=== PATIENT | male | born 1955 | race Hispanic/Latino ===

== ENCOUNTER 2017-12-29 10:20 | Emergency (ER) | payer OTHER ==
[2017-12-29 11:29] LABS: Absolute Monocytes 0.4 K/uL (0.1-1.3); Absolute Neutrophil 3.6 K/uL (1.8-8.0); Basophils % 0.5 % (0-1.3); Eosinophils % 2.1 % (0-4.4); Hematocrit 45.9 % (39.6-49.0); Lymphocytes % 32.7 % (15.3-44.8); MCH 31.2 pg (27.0-35.0); MCV 88.4 fL (80-100); MPV 8.1 fL (7.6-11.3); Monocytes % 6.9 % (3.3-12.3)
[2017-12-29 11:36] LABS: Protime INR 0.98
[2017-12-29 11:49] LABS: Albumin 3.9 g/dL (3.4-5.0); Bilirubin Direct 0.1 mg/dL (0-0.2); Bilirubin Total 0.4 mg/dL (0.2-1.0); Magnesium 2.4 mg/dL (1.8-2.4); Potassium 4.5 mmol/L (3.5-5.1); Protein, Total 7.4 g/dL (6.4-8.2)
[2017-12-29] MEDS ORDERED: MECLIZINE HCL 12.5 MG TAB ONE (11:57)
[2017-12-29] MEDS ORDERED: KETOROLAC 30 MG/ML INJ ONE (11:57)
--- NOTE | 2017-12-29 12:03 | RAD REPORT ---
EXAM DESCRIPTION: CT - Head Brain Wo Cont - 12/29/2017 11:41 am CLINICAL HISTORY: Headache, fatigue, dizziness, syncope COMPARISON: None. TECHNIQUE: Axial 5 mm thick images of the head were obtained without IV contrast. All CT scans are performed using dose optimization technique as appropriate and may include automated exposure control or mA/KV adjustment according to patient size. FINDINGS: No intracranial hemorrhage, mass, edema or shift of mid-line structures. No acute infarcti on changes seen. No abnormal extra-axial fluid collections. Ventricles are normal. Physiologic calcif ications are present. Mastoid air cells and visualized portions of the paranasal sinuses are clear. No acute bony findings. IMPRESSION: Negative non-contrast CT head examination.
--- NOTE | 2017-12-29 12:49 | RAD REPORT ---
EXAM DESCRIPTION: RAD - Chest Single View - 12/29/2017 11:48 am CLINICAL HISTORY: Dizziness, weakness, shortness of breath COMPARISON: None. TECHNIQUE: AP portable chest image was obtained 1137 hours . FINDINGS: Lungs are clear. Heart and vasculature are normal. No measurable pleural effusion and no p neumothorax. No gross bony abnormality seen. No acute aortic findings suspected. IMPRESSION: No acute cardiopulmonary process.
--- NOTE | 2017-12-29 14:29 | RAD REPORT ---
EXAM DESCRIPTION: CT - Head angio - 12/29/2017 2:01 pm CLINICAL HISTORY: Dizziness, occipital headache COMPARISON: CT head December 29 TECHNIQUE: During dynamic enhancement using nonionic IV contrast, axial 1 millimeter thick images we re obtained. Sagittal and coronal reformatted images were generated and reviewed using maximum intens ity projection algorithm. FINDINGS: No aneurysm or vascular malformation. No vasculitis findings. Anterior communicating arter y is present. The patient has a normal variant persistent origin supply to the right posterior cerebral artery. Venous sinuses are patent. IMPRESSION: Negative CTA head.
--- NOTE | 2017-12-29 14:45 | EDPHYS ---
Physician Documentation [facility] Name: Kris Teague Age: 62 yrs Sex: Male : 1955 Arrival Date: 12/29/2017 Time: 10:23 Bed 6 Private MD: Out, [facility] ED Physician Soto Duarte HPI: 12/29 11:31 This 62 yrs old Male presents to ER via Ambulatory with complaints of jr8 Dizziness, Headache, Fatigue. 11:31 The patient presents with sense of spinning, vertigo. Onset: The symptoms/episode jr8 began/occurred gradually, 2 week(s) ago. Context: occurred at home, occurred while the patient was at rest, just prior to the episode the patient experienced no apparent symptoms. Modifying factors: The symptoms are alleviated by nothing, the symptoms are aggravated by standing up, changing position. Associated signs and symptoms: Pertinent positives: headache. Severity of symptoms: At their worst the symptoms were moderate in the emergency department the symptoms are unchanged. Patient's baseline: Neuro: alert and fully oriented, Motor: no deficits, Ambulation: walks without assistance, Speech: normal. The patient has not experienced similar symptoms in the past. The patient has not recently seen a physician. Historical: - Allergies: 10:37 No Known Allergies; sv - Home Meds: 10:37 None [Active]; sv - PMHx: 10:37 None; sv - PSHx: 10:37 None; sv - Immunization history:: Adult Immunizations up to date. - Social history:: Smoking status: Patient/guardian denies using tobacco. - Ebola Screening: : No symptoms or risks identified at this time. ROS: 11:31 Eyes: Negative for injury, pain, redness, and discharge, ENT: Negative for injury, jr8 pain, and discharge, Neck: Negative for injury, pain, and swelling, Cardiovascular: Negative for chest pain, palpitations, and edema, Respiratory: Negative for shortness of breath, cough, wheezing, and pleuritic chest pain, Abdomen/GI: Negative for abdominal pain, nausea, vomiting, diarrhea, and constipation, Back: Negative for injury and pain, MS/Extremity: Negative for injury and deformity, Skin: Negative for injury, rash, and discoloration. 11:31 Neuro: Positive for dizziness, headache, Negative for altered mental status, gait disturbance, hearing loss, loss of consciousness, numbness, seizure activity, speech changes, syncope, near syncope, tingling, tinnitus, tremor, visual changes, weakness. Exam: 11:31 Eyes: Pupils equal round and reactive to light, extra-ocular motions intact. Lids and jr8 lashes normal. Conjunctiva and sclera are non-icteric and not injected. Cornea within normal limits. Periorbital areas with no swelling, redness, or edema. ENT: Nares patent. No nasal discharge, no septal abnormalities noted. Tympanic membranes are normal and external auditory canals are clear. Oropharynx with no redness, swelling, or masses, exudates, or evidence of obstruction, uvula midline. Mucous membranes moist. Neck: Trachea midline, no thyromegaly or masses palpated, and no cervical lymphadenopathy. Supple, full range of motion without nuchal rigidity, or vertebral point tenderness. No Meningismus. Cardiovascular: Regular rate and rhythm with a normal S1 and S2. No gallops, murmurs, or rubs. Normal PMI, no JVD. No pulse deficits. Respiratory: Lungs have equal breath sounds bilaterally, clear to auscultation and percussion. No rales, rhonchi or wheezes noted. No increased work of breathing, no retractions or nasal flaring. Abdomen/GI: Soft, non-tender, with normal bowel sounds. No distension or tympany. No guarding or rebound. No evidence of tenderness throughout. Back: No spinal tenderness. No costovertebral tenderness. Full range of motion. Skin: Warm, dry with normal turgor. Normal color with no rashes, no lesions, and no evidence of cellulitis. MS/ Extremity: Pulses equal, no cyanosis. Neurovascular intact. Full, normal range of motion. 11:31 Neuro: Orientation: to person, place \T\ time. Mentation: is normal, Memory: is normal, immediate memory is intact, recent memory is intact, remote memory is intact, Cranial nerves: CN I not tested, CN II- XII are normal as tested, visual tomlinson are intact. extraocular movements are intact, Facial palsy and sensory deficits are absent. Nystagmus is absent. Speech is clear and appropriate. Tongue strength is normal, Cerebellar function: normal finger to nose testing, heel to coker testing is normal, Motor: moves all fours, strength is 5/5 in all extremities, Sensation: no obvious gross deficits, Gait: not tested. seizure activity, is not displayed by the patient, Abnormal movements: there are no abnormal movements. 11:35 ECG was reviewed by the Attending Physician. jr8 Vital Signs: 10:37 BP 129 / 87; Pulse 88; Resp 16; Temp 97.6; Pulse Ox 97% ; Weight 85.28 kg; Height 5 ft. sv 5 in. (165.10 cm); Pain 8/10; 11:15 BP 127 / 86; Pulse 83; Resp 15; Pulse Ox 96% on R/A; dh3 11:55 BP 119 / 84; Pulse 82; Resp 18; Pulse Ox 98% on R/A; dh3 12:46 BP 121 / 81; Pulse 81; Resp 18; Pulse Ox 97% on R/A; aj1 14:46 BP 130 / 76; Pulse 83; Resp 18; Pulse Ox 99% ; aj1 10:37 Body Mass Index 31.28 (85.28 kg, 165.10 cm) sv NIH Stroke Scale Scores: 11:31 NIHSS Score: 0 jr8 MDM: 10:48 Patient medically screened. jr8 14:44 Data reviewed: vital signs, nurses notes, lab test result(s), radiologic studies, CT jr8 scan, and as a result, I will discharge patient. Data interpreted: Pulse oximetry: on room air is 97 %. Interpretation: normal. Counseling: I had a detailed discussion with the patient and/or guardian regarding: the historical points, exam findings, and any diagnostic results supporting the discharge/admit diagnosis, lab results, radiology results, the need for outpatient follow up, a neurologist, to return to the emergency department if symptoms worsen or persist or if there are any questions or concerns that arise at home. Response to treatment: the patient's symptoms have markedly improved after treatment. 12/29 11:04 Order name: Basic Metabolic Panel; Complete Time: 11:49 12/29 11:04 Order name: CBC with Diff; Complete Time: 11:34 12/29 11:04 Order name: LFT's; Complete Time: 11:49 12/29 11:04 Order name: Magnesium; Complete Time: 11:49 12/29 11:04 Order name: NT PRO-BNP; Complete Time: 11:12/29 11:04 Order name: PT-INR; Complete Time: 11:49 12/29 11:04 Order name: Troponin (emerg Dept Use Only); Complete Time: 11:49 12/29 11:04 Order name: XRAY Chest (1 view); Complete Time: 13:03 12/29 11:04 Order name: EKG; Complete Time: 11:12/29 11:05 Order name: CT Head Brain wo Cont; Complete Time: 12:12/29 13:22 Order name: Head angio; Complete Time: 14:44 EDMS 12/29 11:04 Order name: Cardiac monitoring; Complete Time: :12/29 11:04 Order name: EKG - Nurse/Tech; Complete Time: :12/29 11:04 Order name: IV Saline Lock; Complete Time: 12/29 11:04 Order name: Labs collected and sent; Complete Time: :12/29 11:04 Order name: O2 Per Protocol; Complete Time: 12/29 11:04 Order name: O2 Sat Monitoring; Complete Time: : EC:35 Rate is 83 beats/min. Rhythm is regular, Normal Sinus Rhythm. QRS [place] is Normal. [place] jr8 interval is normal at 186 msec. QRS interval is normal at 80 msec. QT interval is normal at 437 msec. No Q waves. T waves are Flattened in lead III. No ST changes noted. Clinical impression: Normal ECG and NSR w/ Non-specific ST/T Changes. Interpreted by me. Reviewed by me. Administered Medications: 12:07 Drug: Valium 2 mg Route: IVP; Site: right antecubital; aj1 14:48 Follow up: Response: No adverse reaction aj1 12:07 Drug: Meclizine 25 mg Route: PO; aj1 14:48 Follow up: Response: No adverse reaction aj1 12:07 Drug: TORadol 30 mg Route: IVP; Site: right antecubital; aj1 14:49 Follow up: Response: No adverse reaction aj1 Disposition: 12/30 06:43 Co-signature as Attending Physician, Soto Duarte MD I agree with the assessment and meagan plan of care. Disposition: 12/29/17 14:45 Discharged to Home. Impression: Vertigo, Migraine. - Condition is Stable. - Prescriptions for Fioricet 50- 325-40 mg Oral tablet - take 2 tablet by ORAL route every 4 hours as needed not to exceed 6 tablets per 24hrs; 20 tablet. Meclizine 25 mg Oral Tablet - take 1 tablet by ORAL route every 8 hours As needed; 30 tablet. Valium 2 mg Oral Tablet - take 1 tablet by ORAL route every 8 hours As needed; 20 tablet. - Medication Reconciliation Form, Thank You Letter, Antibiotic Education, Prescription Opioid Use form. - Follow up: Chetan Avery MD; When: 2 - 3 days; Reason: Recheck today's complaints, Continuance of care, Re-evaluation by your physician. - Problem is new. - Symptoms have improved. NIH Stroke Scale - NIH Stroke Score Date: 12/29/2017 Time: 11:31 Total Score = 0 1a. Level of Consciousness (LOC) - 0(Alert) 1b. Level of Consciousness (LOC) (Year \T\ Age) - 0(Both) 1c. LOC Commands (Open \T\ Closes Eyes/Airport Control Operator) - 0(Both) 2. Best Gaze (Lateral Gaze Paresis) - 0(Normal) 3. Visual Field Loss - 0(No visual loss) 4. Facial Palsy - 0(Normal) 5a. Left Arm: Motor (10-second hold) - 0(No drift) 5b. Right Arm: Motor (10-second hold) - 0(No drift) 6a. Left Leg: Motor (5-second hold - always test supine) - 0(No drift) 6b. Right Leg: Motor (5-second hold - always test supine) - 0(No drift) 7. Limb Ataxia (finger/nose \T\ heel/coker - test with eyes open) - 0(Absent) 8. Sensory Loss (pinprick arms/legs/face) - 0(Normal) 9. Best Language: Aphasia (description/naming/reading) - 0(No aphasia) 10. Dysarthria (speech clarity - read or repeat words) - 0(Normal) 11. Extinction and Inattention (visual/tactile/auditory/spatial/personal) - 0(No abnormality) Initials: jr8 Signatures: Dispatcher [employer] EDRebekah Guzman RN RN aj1 Dante, Nirali, RN Soto Pedro MD MD cha Smirch, Shelby, RN RN Pineda Scruggs PA PA jr8 Corrections: (The following items were deleted from the chart) 12/29 15:33 14:45 12/29/2017 14:45 Discharged to Home. Impression: Vertigo; Migraine. ss Condition is Stable. Forms are Medication Reconciliation Form, Thank You Letter, Antibiotic Education, Prescription Opioid Use. Follow up: Chetan Avery; When: 2 - 3 days; Reason: Recheck today's complaints, Continuance of care, Re-evaluation by your physician. Problem is new. Symptoms have improved. jr8
--- NOTE | 2017-12-29 14:45 | ER ---
Nurse's Notes [facility] Name: Kris Teague Age: 62 yrs Sex: Male : 1955 Arrival Date: 12/29/2017 Time: 10:23 Bed 6 Private MD: Out, [facility] Diagnosis: Vertigo;Migraine Presentation: 12/29 10:36 Presenting complaint: Patient states: dizziness, occipital headache, fatigue x 2 weeks. sv Transition of care: patient was not received from another setting of care. Onset of symptoms was December 15, 2017. Care prior to arrival: None. 10:36 Method Of Arrival: Ambulatory sv 10:36 Acuity: ABBEY 3 sv Historical: - Allergies: 10:37 No Known Allergies; sv - Home Meds: 10:37 None [Active]; sv - PMHx: 10:37 None; sv - PSHx: 10:37 None; sv - Immunization history:: Adult Immunizations up to date. - Social history:: Smoking status: Patient/guardian denies using tobacco. - Ebola Screening: : No symptoms or risks identified at this time. Screenin:50 Abuse screen: Denies threats or abuse. Denies injuries from another. Nutritional aj1 screening: No deficits noted. Tuberculosis screening: No symptoms or risk factors identified. Assessment: 10:50 General: Appears in no apparent distress. uncomfortable, Behavior is calm, cooperative, aj1 appropriate for age. Pain: Complains of pain in occipital area Pain radiates to forehead, right ear and left ear Pain currently is 10 out of 10 on a pain scale. Quality of pain is described as throbbing, Pain began 2 weeks ago Alleviated by nothing. Aggravated by nothing. Neuro: Level of Consciousness is awake, alert, obeys commands, Oriented to person, place, time, situation, Social Media Developer are equal bilaterally Moves all extremities. Full function Gait is steady, Speech is normal, Facial symmetry appears normal, Intact Reports dizziness, headache Denies weakness blurred vision diplopia. Cardiovascular: Heart tones S1 S2 present Patient's skin is warm and dry. Respiratory: Airway is patent Respiratory effort is even, unlabored, Respiratory pattern is regular, symmetrical, Breath sounds are clear bilaterally. GI: No signs and/or symptoms were reported involving the gastrointestinal system. : No signs and/or symptoms were reported regarding the genitourinary system. EENT: No signs and/or symptoms were reported regarding the EENT system. Derm: No signs and/or symptoms reported regarding the dermatologic system. Skin is pink, warm \T\ dry. normal. Musculoskeletal: No signs and/or symptoms reported regarding the musculoskeletal system. Circulation, motion, and sensation intact. 11:50 Reassessment: Patient appears in no apparent distress at this time. No changes from aj1 previously documented assessment. Patient and/or family updated on plan of care and expected duration. Pain level reassessed. Patient is alert, oriented x 3, equal unlabored respirations, skin warm/dry/pink. 12:50 Reassessment: Patient and/or family updated on plan of care and expected duration. Pain aj1 level reassessed. General: Appears in no apparent distress. comfortable, Behavior is calm, cooperative. Neuro: Level of Consciousness is awake, alert, obeys commands. Cardiovascular: Patient's skin is warm and dry. Respiratory: Airway is patent Respiratory effort is even, unlabored, Respiratory pattern is regular, symmetrical. Derm: Skin is pink, warm \T\ dry. normal. Derm: Skin is pink, warm \T\ dry. normal. Musculoskeletal: Circulation, motion, and sensation intact. 13:50 Reassessment: Patient appears in no apparent distress at this time. No changes from aj1 previously documented assessment. Patient and/or family updated on plan of care and expected duration. Pain level reassessed. Patient is alert, oriented x 3, equal unlabored respirations, skin warm/dry/pink. 14:48 Reassessment: Patient appears in no apparent distress at this time. No changes from aj1 previously documented assessment. Patient and/or family updated on plan of care and expected duration. Pain level reassessed. Patient is alert, oriented x 3, equal unlabored respirations, skin warm/dry/pink. Vital Signs: 10:37 BP 129 / 87; Pulse 88; Resp 16; Temp 97.6; Pulse Ox 97% ; Weight 85.28 kg; Height 5 ft. sv 5 in. (165.10 cm); Pain 8/10; 11:15 BP 127 / 86; Pulse 83; Resp 15; Pulse Ox 96% on R/A; dh3 11:55 BP 119 / 84; Pulse 82; Resp 18; Pulse Ox 98% on R/A; dh3 12:46 BP 121 / 81; Pulse 81; Resp 18; Pulse Ox 97% on R/A; aj1 14:46 BP 130 / 76; Pulse 83; Resp 18; Pulse Ox 99% ; aj1 10:37 Body Mass Index 31.28 (85.28 kg, 165.10 cm) sv NIH Stroke Scale Scores: 11:31 NIHSS Score: 0 jr8 ED Course: 10:23 Patient arrived in ED. sb2 10:24 Out, of Town is Private Physician. sb2 10:37 Triage completed. sv 10:37 Arm band placed on right wrist. sv 10:48 Pineda Smith PA is PHCP. jr8 10:48 Soto Duarte MD is Attending Physician. jr8 10:49 Rebekah Toney RN is Primary Nurse. aj1 10:50 Patient has correct armband on for positive identification. Bed in low position. Call aj1 light in reach. Side rails up X 1. laboratory monitor on. Pulse ox on. NIBP on. 10:50 No provider procedures requiring assistance completed. aj1 11:17 Inserted saline lock: 20 gauge in right antecubital area, using aseptic technique. ss Blood collected. 11:40 CT Head Brain wo Cont In Process Unspecified. EDMS 11:40 CT completed. Patient moved to CT via stretcher. Patient moved back from CT. kw1 11:40 EKG done, by ED staff, reviewed by Pineda AGUILAR. dh3 11:48 XRAY Chest (1 view) In Process Unspecified. EDMS 14:01 Head angio In Process Unspecified. EDMS 14:01 CT completed. Patient tolerated procedure well. Patient moved back from CT. cw1 14:44 Chetan Avery MD is Referral Physician. jr8 15:33 IV discontinued, intact, bleeding controlled, No redness/swelling at site. Pressure ss dressing applied. Administered Medications: 12:07 Drug: Valium 2 mg Route: IVP; Site: right antecubital; aj1 14:48 Follow up: Response: No adverse reaction aj1 12:07 Drug: Meclizine 25 mg Route: PO; aj1 14:48 Follow up: Response: No adverse reaction aj1 12:07 Drug: TORadol 30 mg Route: IVP; Site: right antecubital; aj1 14:49 Follow up: Response: No adverse reaction aj1 Outcome: 14:45 Discharge ordered by MD. le 15:33 Discharged to home ambulatory, with family. 15:33 Condition: good 15:33 Discharge instructions given to patient, family, Instructed on discharge instructions, follow up and referral plans. medication usage, Demonstrated understanding of instructions, follow-up care, medications, Prescriptions given X 3. 15:33 Patient left the ED. NIH Stroke Scale - NIH Stroke Score Date: 12/29/2017 Time: 11:31 Total Score = 0 1a. Level of Consciousness (LOC) - 0(Alert) 1b. Level of Consciousness (LOC) (Year \T\ Age) - 0(Both) 1c. LOC Commands (Open \T\ Closes Eyes/Assembler Body) - 0(Both) 2. Best Gaze (Lateral Gaze Paresis) - 0(Normal) 3. Visual Field Loss - 0(No visual loss) 4. Facial Palsy - 0(Normal) 5a. Left Arm: Motor (10-second hold) - 0(No drift) 5b. Right Arm: Motor (10-second hold) - 0(No drift) 6a. Left Leg: Motor (5-second hold - always test supine) - 0(No drift) 6b. Right Leg: Motor (5-second hold - always test supine) - 0(No drift) 7. Limb Ataxia (finger/nose \T\ heel/coker - test with eyes open) - 0(Absent) 8. Sensory Loss (pinprick arms/legs/face) - 0(Normal) 9. Best Language: Aphasia (description/naming/reading) - 0(No aphasia) 10. Dysarthria (speech clarity - read or repeat words) - 0(Normal) 11. Extinction and Inattention (visual/tactile/auditory/spatial/personal) - 0(No abnormality) Initials: mimi Signatures: Dispatcher [employer] EDRebekah Guzman RN RN Nirali Bryant RN Chioma Jacob RN RN ss Woodley, Crystal cw1 Pineda Smith PA PA jrMelody Flowers 3 Kaela Clifton kw1 Josette Rahman2 Corrections: (The following items were deleted from the chart) 14:02 13:[address] via wheelchair. cw1 cw1 14:02 13:56 CT completed. cw1 cw1 14:02 13:56 Patient moved back from [address]. cw1 cw1
--- NOTE | 2017-12-30 09:32 | EKG ---
Test Date: 2017-12-29 Test Time: 11:21:51 Cube Machine Tender: ALPHONSE MEASUREMENT RESULTS: Intervals: Rate: 83 [place]: 186 QRSD: 80 QT: 372 QTc: 437 [place]: P: 55 [place]: 186 QRS: -26 T: 27 INTERPRETIVE STATEMENTS: Normal sinus rhythm Minimal voltage criteria for LVH, may be normal variant Borderline ECG No previous ECG available for comparison Electronically Signed On 12-30-17 09:28:23 CDT by Patricio Villalobos
== END 2017-12-29 15:33 | disposition home or self-care (01) ==
LOC: ER 10:20
DX: G43.909 Migraine, unspecified, not intractable, without status migrainosus (principal)
CPT/HCPCS: 36415; 70450; 70496; 71045; 80048; 80076; 83735; 83880; 84484; 85025; 85610; 93005; 96374; 96375; 99285; Q9967

== ENCOUNTER 2024-04-11 04:31 | Emergency (ER) | payer OTHER ==
--- OUTSIDE RECORDS SUMMARY | 2024-04-11 04:34 | XMS REPORT | Continuity of Care Document ---
Author Name Unknown Address [address] [place] [address] [address]. [address] [place] [id number] [facility] thconnect Address [address] [facility]. [address] [place] [address] Care Team Providers Care Block Cuber Name Role Phone Unavailable Unavailable Unavailable Payers Payer Name Policy Type Policy Number Effective Date Expirati on Date Source [employer] (MEDICARE REPLACEMENT HMO) [id number] 00:00:00 Encounters Start Date/Time End Date/Time Encounter Type Admission Type Attending Clinicians Care Facility Care Department Encounter ID Source 2021-04-14 08:01:00 2021-04-14 08:01:00 Outpatient [facility] [id number] [facility]
[2024-04-11] MEDS ORDERED: NA CHLORIDE 0.9% 1,000 ML ONE (04:57)
[2024-04-11] MEDS ORDERED: KETOROLAC 30 MG/ML INJ ONE (04:57)
[2024-04-11] MEDS ORDERED: MORPHINE 4 MG/ML SYR ONE ×2 (04:57→08:00)
[2024-04-11] MEDS ORDERED: ONDANSETRON 4 MG/2 ML VIAL ONE (04:57)
[2024-04-11 05:18] LABS: Hemoglobin 16.6 g/dL (13.6-17.9); MPV 7.7 fL (7.6-11.3); Nucleated Red Blood Cells % 0.1 % (0-0)
[2024-04-11 05:21] LABS: Absolute Eosinophils 0.1 K/uL (0-0.5); Absolute Lymphocytes (CBC) 1.7 K/uL (0.7-4.9); Absolute Monocytes 0.7 K/uL (0.1-1.3); Absolute Neutrophil 9.5 K/uL (1.8-8.0); Basophils % 0.3 % (0-1.3); Eosinophils % 1.2 % (0-4.4); Lymphocytes % 14.2 % (15.3-44.8); MCH 30.8 pg (27.0-35.0); MCHC 34.6 g/dL (32.0-36.0); MCV 88.9 fL (80-100); Monocytes % 5.7 % (3.3-12.3); Neutrophils % 78.6 % (41.7-73.7); Platelets 228 thou/uL (152-406); RBC Red Blood Cell Count 5.41 M/uL (4.33-5.43); Red Cell Distribution Width 13.1 % (12.1-15.2)
[2024-04-11 05:27] LABS: Albumin 3.8 g/dL (3.4-5.0); Albumin/Globulin Ratio 0.9 (1.1-1.8); Anion Gap 10.3 mEq/L (5.0-15.0); Bilirubin Total 0.6 mg/dL (0.2-1.0); Globulin 4.1 g/dL (2.3-3.5); Potassium 4.3 mEq/L (3.5-5.1); Protein, Total 7.9 g/dL (6.4-8.2)
[2024-04-11 07:01] LABS: Specific Gravity 1.026 (1.005-1.030); Sqamous Epithelial None Seen /HPF (None Seen); Urine Bacteria None Seen /HPF (<20); Urine Bilirubin NEGATIVE (Negative); Urine Blood 2+ (Negative); Urine Clarity Clear (Clear); Urine Color Yellow (Yellow); Urine Culture Reflex Order NOT NEEDED; Urine Glucose NEGATIVE (Negative); Urine Ketones NEGATIVE (Negative); Urine Microscopic Reflex YN ORDER UMIC; Urine Mucus Slight /HPF (None Seen); Urine Nitrite NEGATIVE (Negative); Urine Protein TRACE (Negative); Urine RBC 21-50 /HPF (None Seen); Urine Urobilinogen Normal (Normal); Urine WBC <5 /HPF (<5)
--- NOTE | 2024-04-11 07:29 | RAD REPORT ---
CTABDOMEN PELVIS WITH IV CONTRAST CLINICAL INDICATION: Abdominal pain COMPARISON: None TECHNIQUE: CT images of the abdomen and pelvis obtained following administration of intravenous contr ast. Multiplanar reformats were provided. Dose-optimization techniques such as automated exposure control, iterative r econstruction, and mA and/or kV adjustment for patient size was utilized for this examination. FINDINGS: LOWER CHEST: Mild dependent changes at the bilateral lung bases without pleural or pericardial effusi on. LIVER: Diffuse fatty infiltration of the liver without focal lesion. BILIARY: Trace amount of calcified gallstones in gallbladder. No pericholecystic stranding. No biliar y ductal dilatation. PANCREAS: Unremarkable. SPLEEN: Unremarkable. ADRENALS: Small 1.2 cm right adrenal nodule with fat attenuation, in keeping with an adenoma. KIDNEYS/URETERS: Large obstructive 1.3 cm calculus at left ureteropelvic junction. Multiple additiona l nonobstructive calculi in left kidney up to 0.8 cm. Mild left hydronephrosis. Mild left periureteric stranding. Mild uroepithel ial thickening and enhancement at left renal pelvis, reflecting underlying inflammation. Right kidney is unremarkable. Mild bilateral p erinephric stranding are nonspecific and can be age related. BOWEL/STOMACH: Unremarkable. APPENDIX: Normal. MESENTERY/PERITONEUM: Unremarkable. RETROPERITONEUM: No adenopathy. URINARYBLADDER: Unremarkable. REPRODUCTIVE: Prostate is mildly enlarged. VASCULAR: Unremarkable. ABDOMINAL/PELVIC WALL: Unremarkable. BONES: Mild to moderate central canal stenosis at L4-5 level secondary to mild disc bulge and ligamen sara flavum hypertrophy. No acute bony abnormality. No compression deformity, nor osteolytic or sclerotic lesion. IMPRESSION: 1. Obstructive 1.3 cm left UPJ calculus with associated mild left obstructive uropathy. 2. Additional multiple nonobstructive left renal calculi. 3. Hepatic steatosis. 4. Mild to moderate central canal stenosis at L4-5 level. 5. Cholelithiasis. 6. Incidental finding of a 1.2 cm lipid-rich right adrenal adenoma. No follow-up imaging is recommend ed. Electronically signed by: Anita Miller MD 04/11/2024 06:58 AM CDT RP Due to temporary technical issues with the PACS/Cinario reporting system, reports are being rody d by the in-house radiologist without review as a courtesy to ensure prompt reporting the interpreting radiologist is fully responsible for the content of the report. Transcribed Date/Time: 04/11/2024 7:29 AM
[2024-04-11] MEDS ORDERED: TAMSULOSIN 0.4 MG SR CAP ONE (07:49)
[2024-04-11] MEDS ORDERED: METOCLOPRAMIDE 10 MG/2mL INJ ONE (08:00)
--- NOTE | 2024-04-11 09:22 | ER ---
Nurse's Notes [facility] Name: Kris Teague Age: 69 yrs Sex: Male : 1955 Arrival Date: 04/11/2024 Time: 04:31 Bed 14 Private MD: Diagnosis: Ureterolithiasis Presentation: 04/11 04:37 Chief complaint: Patient states: LEFT LOWER QUADRANT PAIN, NAUSEA, AND VOMITING. vc1 04:37 Coronavirus screen: Vaccine status: Patient reports receiving the 2nd dose of the covid vc1 vaccine. Ebola Screen: No symptoms or risks identified at this time. Initial Sepsis Screen: Does the patient meet any 2 criteria? No. Patient's initial sepsis screen is negative. Does the patient have a suspected source of infection? No. Patient's initial sepsis screen is negative. Risk Assessment: Do you want to hurt yourself or someone else? Patient reports no desire to harm self or others. Onset of symptoms was April 11, 2024. 04:37 Method Of Arrival: Ambulatory vc1 04:37 Acuity: ABBEY 3 vc1 Triage Assessment: 04:52 General: Appears uncomfortable, Behavior is calm, cooperative. Pain: Complains of pain vc1 in left lower quadrant Pain radiates to back Pain currently is 7 out of 10 on a pain scale. Quality of pain is described as aching. Neuro: Level of Consciousness is awake, alert, obeys commands, Oriented to person, place, time, situation. Cardiovascular: Patient's skin is warm and dry. Respiratory: Airway is patent Respiratory effort is even, unlabored, Respiratory pattern is regular, symmetrical. Historical: - Allergies: 04:52 No Known Allergies; vc1 - PMHx: 04:52 Anxiety; Hypertensive disorder; vc1 - PSHx: 04:52 None; vc1 - Immunization history:: Adult Immunizations up to date. - Infectious Disease History:: Denies. - Social history:: Smoking status: Patient denies any tobacco usage or history of. - Family history:: not pertinent. Screenin:00 [facility] ED Fall Risk Assessment (Adult) History of falling in the last 3 months, jj7 including since admission No falls in past 3 months (0 pts) Confusion or Disorientation No (0 pts) Intoxicated or Sedated No (0 pts) Impaired Gait No (0 pts) Mobility Assist Device Used No (0 pt) Altered Elimination No (0 pt) Score/Fall Risk Level 0 - 2 = Low Risk Oriented to surroundings, Maintained a safe environment, Educated pt \T\ family on fall prevention, incl call for assistance when getting out of bed, Assessed \T\ reinforced patient's understanding of fall precautions. Abuse screen: Denies threats or abuse. Nutritional screening: No deficits noted. Tuberculosis screening: No symptoms or risk factors identified. Assessment: 05:00 General: Appears in no apparent distress. uncomfortable, Behavior is calm, cooperative, jj7 appropriate for age. Pain: Complains of pain in anterior aspect of left lateral abdomen. GI: Abd is soft and non tender in anterior aspect of left lateral abdomen, right upper quadrant, left upper quadrant, right lower quadrant and left lower quadrant Reports nausea, vomiting. 07:15 General: Appears in no apparent distress. comfortable, well groomed, well developed, kc6 Behavior is calm, cooperative, appropriate for age. Pain: Complains of pain in low back area and right low back. Neuro: Level of Consciousness is awake, alert, obeys commands, Oriented to person, place, time, situation, Appropriate for age. Cardiovascular: Capillary refill < 3 seconds. Respiratory: Airway is patent Trachea midline Respiratory effort is even, unlabored, Respiratory pattern is regular, symmetrical. GI: Reports nausea, vomiting, Patient currently denies diarrhea. : No signs and/or symptoms were reported regarding the genitourinary system. Urine is clear. EENT: No signs and/or symptoms were reported regarding the EENT system. Derm: No signs and/or symptoms reported regarding the dermatologic system. Skin is intact, is healthy with good turgor, Skin is pink, warm \T\ dry. Musculoskeletal: No signs and/or symptoms reported regarding the musculoskeletal system. Circulation, motion, and sensation intact. Capillary refill < 3 seconds, Range of motion: intact in all extremities. 08:21 Reassessment: Patient appears in no apparent distress at this time. No changes from kc6 previously documented assessment. Patient and/or family updated on plan of care and expected duration. Pain level reassessed. Patient is alert, oriented x 3, equal unlabored respirations, skin warm/dry/pink. 09:13 Reassessment: Patient appears in no apparent distress at this time. No changes from kc6 previously documented assessment. Patient and/or family updated on plan of care and expected duration. Pain level reassessed. Patient is alert, oriented x 3, equal unlabored respirations, skin warm/dry/pink. 10:54 Reassessment: report called to NJMARISABEL Auguste RN. tm6 11:36 Reassessment: Patient and/or family updated on plan of care and expected duration. Pain tm6 level reassessed. Patient is alert, oriented x 3, equal unlabored respirations, skin warm/dry/pink. Patient denies pain at this time. Vital Signs: 04:37 BP 146 / 96; Pulse 84; Resp 18 S; Temp 98.2; Pulse Ox 100% on R/A; Weight 91.17 kg; jj7 Height 5 ft. 9 in. ; Pain 7/10; 05:42 BP 142 / 86; Pulse 73; Resp 16; Pulse Ox 94% ; jj7 07:03 BP 120 / 76; Pulse 74; Resp 19; Pulse Ox 97% ; jj7 07:26 BP 115 / 79; Pulse 66; Resp 16 S; Pulse Ox 93% on R/A; kc6 08:21 BP 116 / 74; Pulse 68; Resp 18 S; Pulse Ox 96% on R/A; kc6 09:13 BP 114 / 79; Pulse 65; Resp 15 S; Pulse Ox 93% on R/A; kc6 11:34 BP 93 / 60; Pulse 65; Resp 18; Temp 98; Pulse Ox 93% on 2 lpm NC; Pain 0/10; tm6 04:37 Body Mass Index 29.68 (91.17 kg, 175.26 cm) jj7 04:37 Pain Scale: Adult jj7 11:34 Pain Scale: Adult tm6 [place] Coma Score: 08:04 Eye Response: spontaneous(4). Motor Response: obeys commands(6). Verbal Response: sp4 oriented(5). Total: 15. ED Course: 04:36 Patient arrived in ED. gm2 04:40 Elena Toney RN is Primary Nurse. jj7 04:45 Michael Nieto MD is Attending Physician. sp4 04:52 Triage completed. vc1 05:00 Inserted saline lock: 20 gauge in right antecubital area, using aseptic technique. jj7 Blood collected. Flushed with 10 mL NS. 05:00 Patient has correct armband on for positive identification. Bed in low position. Call jj7 light in reach. Side rails up X 1. Adult w/ patient. Provided Education on: USE OF CALL RHODES. Warm blanket given. 05:10 CBC with Diff Sent. jj7 05:10 CMP Sent. jj7 05:10 Lipase Sent. jj7 06:07 CT Abd/Pelvis - IV Contrast Only In Process Unspecified. EDMS 07:00 Report received from MARINA DAVIS. kc6 07:00 Pulse ox on. NIBP on. Door closed. Noise minimized. Lights dimmed. Pillow given. kc6 07:00 Arm band placed on. kc6 07:01 Urinalysis w/ reflexes Sent. jj7 07:05 Report given to OLIVIA GRAY. jj7 07:26 Patient maintains SpO2 saturation greater than 95% on room air. kc6 08:01 initiated a transfer with Cassia from the [facility] Transfer [facility]. eb 08:10 connected the urologist customs consultant for [facility] with Dr. Ervin for patient transfer eb consultation. 08:18 patient denied at [facility]/ Urologist denied the patient in transfer will schedule an eb appointment with his office. 08:33 initiated a transfer with Miranda from the [facility] transfer center. eb 08:41 the urologist customs consultant for [facility] is in an emergent case and will call back in eb 30 minutes. 09:17 Attending Physician role handed off by Michael Nieto MD sd2 09:17 Nirali Ervin MD is Attending Physician. sd2 09:57 administrative approval given by Miranda Maria Rn/ patient has been accepted [facility] eb [facility]/ Dr. Will Ortega has accepted the patient in transfer/ report to be called to [phone]/. 11:36 No provider procedures requiring assistance completed. Patient transferred, IV remains tm6 in place. Administered Medications: 05:03 Drug: Ondansetron IVP 4 mg IVP once; over 2 minutes Route: IVP; Site: right antecubital;jj7 07:02 Follow up: Response: Marked relief of symptoms; Nausea is decreased jj7 05:03 Drug: morphine IVP or IV 4 mg IVP once over 4 mins Route: IVP; Infused Over: 4 mins; jj7 Site: right antecubital; 07:02 Follow up: Response: Marked relief of symptoms; Pain is decreased jj7 05:03 Drug: Ketorolac IVP 30 mg IVP once Route: IVP; Site: right antecubital; jj7 05:30 Follow up: Response: Marked relief of symptoms; Pain is decreased jj7 05:04 Drug: NS 0.9% IV 1000 ml IV at 1 bolus Per protocol; to be given as a bolus over 60 jj7 minutes Route: IV; Rate: 1 bolus; Site: right antecubital; 06:10 Follow up: IV Status: Completed infusion jj7 07:51 Drug: Flomax PO 0.8 mg PO once Route: PO; kc6 08:34 Follow up: Response: No adverse reaction kc6 08:05 Drug: morphine IVP or IV 4 mg IVP once over 4 mins Route: IVP; Infused Over: 4 mins; kc6 Site: right antecubital; 08:34 Follow up: Response: No adverse reaction; Pain is decreased; RASS: Alert and Calm (0) kc6 08:05 Drug: metoCLOPramide IVP 10 mg IVP once; over 1 to 2 minutes Route: IVP; Site: right kc6 antecubital; 08:34 Follow up: Response: No adverse reaction kc6 10:48 Drug: Rocephin IV 1 grams IV at bolus once; Given slow IV push per pharmacy tm6 instructions Route: IV; Rate: bolus; Site: right antecubital; 11:37 Follow up: IV Status: Completed infusion; IV Intake: 10ml tm6 Medication: 05:00 VIS not applicable for this client. jj7 Intake: 11:37 IV: 10ml; Total: 10ml. tm6 Outcome: 09:21 ER care complete, transfer ordered by . sd2 11:36 Transferred by ground EMS [facility] to [facility], tm6 11:36 Condition: stable 11:36 Instructed on the need for transfer, 11:37 Patient left the ED. tm6 Signatures: Dispatcher [employer] EDMS Farnaz Hilton Vanessa, RN RN Nirali Ponce MD MD sd2 Olivia Kaufman RN RN kc6 Elena Toney RN RN jj7 Michael Nieto MD MD sp4 Lynn Quinonez 2 Brian Benson RN RN tm6 Corrections: (The following items were deleted from the chart) 04:53 04:52 PMHx: None; vc1 vc1 05:11 04:37 BP 146 / 96; Pulse 84bpm; Resp 18bpm; Spontaneous; Pulse Ox 100% RA; 91.17 kg; jj7 Height 5 ft. 9 in.; BMI: 29.6; Pain 7/10, Adult; vc1
--- NOTE | 2024-04-11 09:22 | EDPHYS ---
Physician Documentation [facility] Name: Kris Teague Age: 69 yrs Sex: Male : 1955 Arrival Date: 04/11/2024 Time: 04:31 Bed 14 Private MD: ED Physician Nirali Ervin HPI: 04/11 04:45 This 69 yrs old Male presents to ER via Unassigned with complaints of LEFT sp4 SIDE ABD PAIN, Nausea/Vomiting. 08:04 69-year-old male presents with acute left flank pain for the last 3 days. Patient sp4 reports vomiting. Historical: - Allergies: 04:52 No Known Allergies; vc1 - PMHx: 04:52 Anxiety; Hypertensive disorder; vc1 - PSHx: 04:52 None; vc1 - Immunization history:: Adult Immunizations up to date. - Infectious Disease History:: Denies. - Social history:: Smoking status: Patient denies any tobacco usage or history of. - Family history:: not pertinent. ROS: 08:04 Constitutional: Negative for fever, chills, and weight loss, positive flank pain left, sp4 positive vomiting, 08:04 All other systems are negative, Exam: 08:04 Constitutional: This is a well developed, well nourished patient who is awake, alert, sp4 and in no acute distress. Head/Face: Normocephalic, atraumatic. Eyes: Pupils equal round and reactive to light, extra-ocular motions intact. Lids and lashes normal. Conjunctiva and sclera are not injected. Cornea within normal limits. Periorbital areas with no swelling, redness, or edema. ENT: Nares patent. No nasal discharge, no septal abnormalities noted. Tympanic membranes are normal and external auditory canals are clear. Oropharynx with no redness, swelling, or masses, exudates, or evidence of obstruction, uvula midline. Mucous membranes moist. Neck: Trachea midline, no thyromegaly or masses palpated, and no cervical lymphadenopathy. Supple, full range of motion without nuchal rigidity, or vertebral point tenderness. Chest/axilla: Normal chest wall appearance and motion. Nontender with no deformity. No lesions are appreciated. Cardiovascular: Regular rate and rhythm with a normal S1 and S2. No gallops, murmurs, or rubs. Normal PMI, no JVD. No pulse deficits. Respiratory: Lungs have equal breath sounds bilaterally, clear to auscultation and percussion. No rales, rhonchi or wheezes noted. No increased work of breathing, no retractions or nasal flaring. Abdomen/GI: Soft, with normal bowel sounds. No distension or tympany. No guarding or rebound. No evidence of tenderness throughout. Back: No spinal tenderness. No costovertebral tenderness. Skin: Warm, dry with normal turgor. Normal color with no rashes, no lesions, and no evidence of cellulitis. MS/ Extremity: Pulses equal, no cyanosis. Neurovascular intact. Full, normal range of motion. Neuro: Awake and alert, GCS 15, oriented to person, place, time, and situation. Cranial nerves II-XII grossly intact. Motor strength 5/5 in all extremities. Sensory grossly intact. Psych: Awake, alert, with orientation to person, place and time. Behavior, mood, and affect are within normal limits Vital Signs: 04:37 BP 146 / 96; Pulse 84; Resp 18 S; Temp 98.2; Pulse Ox 100% on R/A; Weight 91.17 kg; jj7 Height 5 ft. 9 in. ; Pain 7/10; 05:42 BP 142 / 86; Pulse 73; Resp 16; Pulse Ox 94% ; jj7 07:03 BP 120 / 76; Pulse 74; Resp 19; Pulse Ox 97% ; jj7 07:26 BP 115 / 79; Pulse 66; Resp 16 S; Pulse Ox 93% on R/A; kc6 08:21 BP 116 / 74; Pulse 68; Resp 18 S; Pulse Ox 96% on R/A; kc6 09:13 BP 114 / 79; Pulse 65; Resp 15 S; Pulse Ox 93% on R/A; kc6 11:34 BP 93 / 60; Pulse 65; Resp 18; Temp 98; Pulse Ox 93% on 2 lpm NC; Pain 0/10; tm6 04:37 Body Mass Index 29.68 (91.17 kg, 175.26 cm) [facility] 04:37 Pain Scale: Adult [facility] 11:34 Pain Scale: Adult tm6 [place] Coma Score: 08:04 Eye Response: spontaneous(4). Motor Response: obeys commands(6). Verbal Response: sp4 oriented(5). Total: 15. MDM: 04:51 Medical Screening Exam initiated sp4 08:04 Differential diagnosis: Nonspecific abd pain, gastritis, pancreatitis, diverticulitis, sp4 viral gastroenteritis, gastroenteritis. Data reviewed: vital signs, nurses notes, lab test result(s), radiologic studies, CT scan. Consideration of Admission/Observation Escalation of care including admission/observation considered. ED course: Patient Has large size obstructing left ureteral calculus 1.3 cm. Patient should be transferred for further evaluation and urology consult.. ED course: CTABDOMEN PELVIS WITH IV CONTRAST CLINICAL INDICATION: Abdominal pain COMPARISON: None TECHNIQUE: CT images of the abdomen and pelvis obtained following administration of intravenous contrast. Multiplanar reformats were provided. Dose-optimization techniques such as automated exposure control, iterative reconstruction, and mA and/or kV adjustment for patient size was utilized for this examination. FINDINGS: LOWER CHEST: Mild dependent changes at the bilateral lung bases without pleural or pericardial effusion. LIVER: Diffuse fatty infiltration of the liver without focal lesion. BILIARY: Trace amount of calcified gallstones in gallbladder. No pericholecystic stranding. No biliary ductal dilatation. PANCREAS: Unremarkable. SPLEEN: Unremarkable. ADRENALS: Small 1.2 cm right adrenal nodule with fat attenuation, in keeping with an adenoma. KIDNEYS/URETERS: Large obstructive 1.3 cm calculus at left ureteropelvic junction. Multiple additional nonobstructive calculi in left kidney up to 0.8 cm. Mild left hydronephrosis. Mild left periureteric stranding. Mild uroepithelial thickening and enhancement at left renal pelvis, reflecting underlying inflammation. Right kidney is unremarkable. Mild bilateral perinephric stranding are nonspecific and can be age related. BOWEL/STOMACH: Unremarkable. APPENDIX: Normal. MESENTERY/PERITONEUM: Unremarkable. RETROPERITONEUM: No adenopathy. URINARYBLADDER: Unremarkable. REPRODUCTIVE: Prostate is mildly enlarged. VASCULAR: Unremarkable. ABDOMINAL/PELVIC WALL: Unremarkable. BONES: Mild to moderate central canal stenosis at L4-5 level secondary to mild disc bulge and ligamentum flavum hypertrophy. No acute bony abnormality. No compression deformity, nor osteolytic or sclerotic lesion. IMPRESSION: 1. Obstructive 1.3 cm left UPJ calculus with associated mild left obstructive uropathy. 2. Additional multiple nonobstructive left renal calculi. 3. Hepatic steatosis. 4. Mild to moderate central canal stenosis at L4-5 level. 5. Cholelithiasis. 6. Incidental finding of a 1.2 cm lipid-rich right adrenal adenoma. No follow-up imaging is recommended.. 08:06 Transition of care: After a detail discussion of the patient's case, care is sp4 transferred to Nirali Ervin MD. 09:17 ED course: Spoke with Dr. Dana Syed at [facility] who declines the transfer stating no sd2 emergent stent or intervention needed with lack of infection, organ dysfunction and patient being pain controlled. They will fast track an appointment for the patient however with him in clinic. I discussed this with the patient and his and they do not feel comfortable with going home and have asked me to contact another hospital and urologist for a second opinion as he has been in pain for 3 days and not improving and they are supposed to leave the country on a mission trip in 2 weeks. . 09:44 ED course: Spoke with Dr. Allison who accepts the patient for transfer but will see if sd2 he can be transferred to [place] instead of [place] and let us know. . 04/11 04:46 Order name: CBC with Diff; Complete Time: 07:40 sp4 04/11 04:46 Order name: CMP; Complete Time: 07:40 sp4 04/11 04:46 Order name: Lipase; Complete Time: 07:40 sp4 04/11 04:46 Order name: Urinalysis w/ reflexes; Complete Time: 07:40 sp4 04/11 04:51 Order name: CT Abd/Pelvis - IV Contrast Only sp4 04/11 04:46 Order name: IV Saline Lock; Complete Time: 04:55 sp4 04/11 04:46 Order name: Labs collected and sent; Complete Time: 04:55 sp4 04/11 04:51 Order name: NPO; Complete Time: 04:55 sp4 Administered Medications: 05:03 Drug: Ondansetron IVP 4 mg IVP once; over 2 minutes Route: IVP; Site: right antecubital;jj7 07:02 Follow up: Response: Marked relief of symptoms; Nausea is decreased jj7 05:03 Drug: morphine IVP or IV 4 mg IVP once over 4 mins Route: IVP; Infused Over: 4 mins; jj7 Site: right antecubital; 07:02 Follow up: Response: Marked relief of symptoms; Pain is decreased jj7 05:03 Drug: Ketorolac IVP 30 mg IVP once Route: IVP; Site: right antecubital; jj7 05:30 Follow up: Response: Marked relief of symptoms; Pain is decreased jj7 05:04 Drug: NS 0.9% IV 1000 ml IV at 1 bolus Per protocol; to be given as a bolus over 60 jj7 minutes Route: IV; Rate: 1 bolus; Site: right antecubital; 06:10 Follow up: IV Status: Completed infusion jj7 07:51 Drug: Flomax PO 0.8 mg PO once Route: PO; kc6 08:34 Follow up: Response: No adverse reaction kc6 08:05 Drug: morphine IVP or IV 4 mg IVP once over 4 mins Route: IVP; Infused Over: 4 mins; kc6 Site: right antecubital; 08:34 Follow up: Response: No adverse reaction; Pain is decreased; RASS: Alert and Calm (0) 6 08:05 Drug: metoCLOPramide IVP 10 mg IVP once; over 1 to 2 minutes Route: IVP; Site: right kc6 antecubital; 08:34 Follow up: Response: No adverse reaction kc6 10:48 Drug: Rocephin IV 1 grams IV at bolus once; Given slow IV push per pharmacy tm6 instructions Route: IV; Rate: bolus; Site: right antecubital; 11:37 Follow up: IV Status: Completed infusion; IV Intake: 10ml tm6 Disposition Summary: 04/11/24 09:21 Transfer Ordered Notes: Transfer Location: [facility]-System sd2 Reason: Higher level of care sd2 Condition: Stable sd2 Problem: new sd2 Symptoms: have improved sd2 Accepting Physician: Dr. Allison at [facility](04/11/24 11:37) tm6 Diagnosis - Ureterolithiasis sd2 Forms: - Medication Reconciliation Form sd2 - SBAR form sd2 Signatures: Dispatcher [employer] Trixie Rush RN RN vc1 Nirali Ervin MD MD sd2 Olivia Kaufman RN RN kc6 Elena Toney RN RN jj7 Michael Nieto MD MD sp4 Brian Benson RN RN tm6 Corrections: (The following items were deleted from the chart) 04:53 04:52 PMHx: None; vc1 vc1 10:08 09:21 Accepting sd2 sd2 11:37 10:08 Dr. Allison at [facility] sd2 tm6
[2024-04-11] MEDS ORDERED: CEFTRIAXONE 1000 MG/VIAL ONE (10:14)
[2024-04-11 20:51] VITALS: O2SAT 93
[2024-04-11 20:53] VITALS: BP 93/60; TEMP 98
== END 2024-04-11 11:37 | disposition short-term general hospital (02) ==
LOC: ER 04:31
DX: N20.1 Calculus of ureter (principal); I10 Essential (primary) hypertension
CPT/HCPCS: 96365; 96361; 85025; 81001; 36415; 83690; 80053; 74177; 96375; 99285; Q9967; J2765; J2405; J7030; J0696